=== PATIENT | female | born 1985 | race African-American/Black ===

== ENCOUNTER 2019-02-07 22:15 | Emergency (ER) | payer OTHER, SELFPAY | END 2019-02-07 22:44 | disposition home or self-care (01) | LOC: NAV ERS 22:15 | DX: M25.512 Pain in left shoulder (principal); Z79.899 Other long term (current) drug therapy | CPT/HCPCS: 99281 ==

== ENCOUNTER 2020-02-02 16:01 | Emergency (ER) | payer SELFPAY ==
[2020-02-02] MEDS ORDERED: Ondansetron ODT 4 MG TAB ONE (16:21)
== END 2020-02-02 16:40 | disposition home or self-care (01) ==
LOC: NAV ERS 16:01
DX: J02.9 Acute pharyngitis, unspecified (principal); M79.10 Myalgia, unspecified site; R11.0 Nausea; J45.909 Unspecified asthma, uncomplicated; Z87.891 Personal history of nicotine dependence
CPT/HCPCS: 87081; 87430; 99283; Q0162

== ENCOUNTER 2020-10-22 15:09 | Emergency (ER) | payer SELFPAY ==
[2020-10-22] MEDS ORDERED: Ibuprofen 200 MG TAB ONE (15:33)
[2020-10-23 02:50] LABS: SARS-CoV-2 MS2 Positive; SARS-CoV-2 N Gene Positive; SARS-CoV-2 S Gene Positive; SARS-CoV-2 by NAA DETECTED (NotDetected); SARS-CoV-2 orf1ab Positive
== END 2020-10-22 15:48 | disposition home or self-care (01) ==
LOC: NAV ERS 15:09
DX: U07.1 COVID-19 (principal); J06.9 Acute upper respiratory infection, unspecified; J45.909 Unspecified asthma, uncomplicated; Z87.891 Personal history of nicotine dependence
CPT/HCPCS: 87635; 87804; 99284; U0003

== ENCOUNTER 2021-01-15 13:19 | Emergency (ER) | payer SELFPAY ==
[2021-01-15] MEDS ORDERED: Fluorescein Opthalmic Strip ONE (13:30)
[2021-01-15] MEDS ORDERED: Proparacaine 0.5% Opth 15 ML BOT ONE (13:30)
== END 2021-01-15 14:06 | disposition home or self-care (01) ==
LOC: NAV ERS 13:19
DX: H18.822 Corneal disorder due to contact lens, left eye (principal); J45.909 Unspecified asthma, uncomplicated; Z87.891 Personal history of nicotine dependence
CPT/HCPCS: 99283

== ENCOUNTER 2021-12-04 11:29 | Emergency (ER) | payer MEDICAID, OTHER, SELFPAY ==
[2021-12-04] MEDS ORDERED: Famotidine/PF 20 mg/2ml Vial ONE (12:02)
[2021-12-04] MEDS ORDERED: Ketorolac Tromethamine 30 MG/ML VIAL ONE (12:02)
[2021-12-04 12:07] LABS: #Eosinphils 0.1 thou/uL (0.0-0.7); #Lymphocytes 1.4 thou/uL (1.20-3.40); #Monocytes 0.3 thou/uL (0.11-0.59); #Neutrophils 6.2 thou/uL (1.40-6.50); %Basophils 0.5 % (0.0-1.0); %Eosinophils 0.8 % (0.0-10.0); %Lymphocytes 17.4 % (21.0-51.0); %Monocytes 4.1 % (0.0-10.0); %Neutrophils 77.2 % (42.0-75.0); Hemoglobin 9.7 g/dL (12.0-16.0); Mean Corpuscular HGB CONC 30.8 g/dL (32.0-36.0); Mean Corpuscular Hemoglobin 27.6 pg (27.0-31.0); Mean Corpuscular Volume 89.6 fL (78.0-98.0); Mean Platelet Volume 7.9 fL (7.4-10.4); Platelet Count 334 thou/uL (130-400); RBC Distribution Width 14.5 % (11.5-14.5); Red Blood Cell (RBC) Count 3.51 mill/uL (4.20-5.40)
[2021-12-04 12:22] LABS: ALT (SGPT) 8 U/L (8-55); AST (SGOT) 13 U/L (5-34); Albumin 4.5 g/dL (3.5-5.0); Alkaline Phosphatase 51 U/L (40-110); Anion Gap 12 mmol/L (10-20); BUN (Urea Nitrogen) 9 mg/dL (7.0-18.7); Bilirubin, Total 0.4 mg/dL (0.2-1.2); Calc. Creatinine Clearance 0 mL/min (70-130); Calcium 9.8 mg/dL (7.8-10.44); Carbon Dioxide 23 mmol/L (22-29); Chloride 107 mmol/L (98-107); Globulin 3.8 g/dL (2.4-3.5); Glucose 108 mg/dL (70-105); Lipase 45 U/L (8-78); Potassium 3.6 mmol/L (3.5-5.1); Protein, Total 8.3 g/dL (6.0-8.3); Sodium 138 mmol/L (136-145)
[2021-12-04 12:27] LABS: BHCG - Serum Negative (NEGATIVE); Pregs Control Bar Appear? YES (CONTROL BAR)
[2021-12-04 13:11] LABS: Bilirubin Negative (Negative); Blood, Urine Trace (Negative); Glucose, Urine (Dipstick) Negative (Negative); Ketone, Urine 40 mg/dL (Negative); Leukocyte Negative (Negative); Nitrite Negative (Negative); Protein, Urine (Dipstick) Trace mg/dL (Neg-Trace)
[2021-12-04 13:15] LABS: Clarity SL HAZY (Clear)
[2021-12-04 13:23] LABS: Mucous/LPF 3+ LPF (<2+); RBC/HPF 0-3 HPF (0-3); Specific Gravity, Urine 1.032 (1.002-1.036); Squamous Epithelial 0-3 HPF (0-3); WBC/HPF 0-3 HPF (0-3)
[2021-12-04] MEDS ORDERED: Haloperidol Lactate 5 MG/ML VIAL ONE (13:53)
== END 2021-12-04 13:00 | disposition home or self-care (01) ==
LOC: NAV ERS 11:29
DX: R10.13 Epigastric pain (principal); R11.2 Nausea with vomiting, unspecified; F17.200 Nicotine dependence, unspecified, uncomplicated
CPT/HCPCS: 80053; 81003; 81015; 83690; 84703; 85025; 96372; 96374; 96375; J0500; J1630; J1885; S0028

== ENCOUNTER 2022-03-15 22:08 | Emergency (ER) | payer MEDICAID, OTHER, SELFPAY ==
[2022-03-15] MEDS ORDERED: Lidocaine 1% (PF) 30 ML VIAL ONE (22:46)
[2022-03-15] MEDS ORDERED: Boostrix 0.5 ML (Tdap) VIAL ONE ×2 (22:46→22:47)
[2022-03-15] MEDS ORDERED: Acetaminophen 325 MG TAB ONE (22:46)
[2022-03-15] MEDS ORDERED: Bacitracin 1 PK ONE (22:46)
[2022-03-15] MEDS ORDERED: Ondansetron ODT 4 MG TAB ONE (23:56)
[2022-03-15] MEDS ORDERED: Amoxicillin/Potassium Clav 875 MG TAB ONE (23:56)
== END 2022-03-16 00:05 | disposition home or self-care (01) ==
LOC: NAV ERS 22:08
DX: S01.511A Laceration without foreign body of lip, initial encounter (principal); Z23 Encounter for immunization; Z87.891 Personal history of nicotine dependence; Y04.0XXA Assault by unarmed brawl or fight, initial encounter
CPT/HCPCS: 12011; 90715; J2001; Q0162

== ENCOUNTER 2024-08-12 19:01 | Emergency (ER) | payer BC, SELFPAY ==
[2024-08-12 20:14] LABS: SARS-CoV-2 E Target Negative; SARS-CoV-2 N2 Target Negative; SARS-CoV-2 NAA Rapid Test Not Detected (NotDetected); SARS-CoV-2 RdRP gene Negative
== END 2024-08-12 20:27 | disposition home or self-care (01) ==
LOC: NAV ERS 19:01
DX: R05.9 Cough, unspecified (principal)
CPT/HCPCS: 87804; 99283; U0002

== ENCOUNTER 2024-09-04 15:07 | Outpatient (CLI) | payer BC | END 2024-09-04 15:08 | disposition home or self-care (01) | LOC: NAV RAD 15:07 | PROVIDERS: ATTEND Nurse Practitioner Family | DX: R05.1 Acute cough (principal) | CPT/HCPCS: 71046 ==

== ENCOUNTER 2024-12-21 08:56 | Emergency (ER) | payer BC ==
[2024-12-21] MEDS ORDERED: Lidocaine 1% (PF) 30 ML VIAL ONE (10:12)
== END 2024-12-21 10:53 | disposition home or self-care (01) ==
LOC: NAV ERS 08:56
DX: L02.411 Cutaneous abscess of right axilla (principal)
CPT/HCPCS: 10060